=== PATIENT | male | born 1985 | race Caucasian/White ===

== ENCOUNTER → 2017-06-07 | Outpatient (CLI) | payer BC ==
[2017-06-07 18:47] LABS: BASO % 0.5 %; BASO ABS # 0.04 K/uL (0-0.2); EOS % 1.7 %; EOS ABS # 0.14 K/uL (0-0.5); HEMATOCRIT 45.5 % (42-52); IG# 0.02 K/uL (0.00-0.02); LYMPH % 34.8 %; LYMPH ABS # 2.86 K/uL (1.2-3.4); MEAN CELL VOLUME 82.3 fL (80-100); MEAN CORPUSCULAR HEMOGLOBIN 28.9 pg (25-34); MEAN CORPUSCULAR HGB CONC 35.2 g/dl (32-36); MEAN PLATELET VOLUME 11.2 fL (7.4-10.4); MONO % 7.2 %; MONO ABS # 0.59 K/uL (0.11-0.59); NEUT % 55.6 %; NEUT ABS # 4.58 K/uL (1.4-6.5); PLATELET COUNT 195 K/uL (130-400); RED CELL DISTRIBUTION WIDTH CV 13.8 % (11.5-14.5); RED CELL DISTRIBUTION WIDTH SD 41.5 fL (36.4-46.3); WHITE BLOOD COUNT 8.23 K/uL (4.8-10.8)
[2017-06-07 19:15] LABS: ALBUMIN 3.9 gm/dl (3.4-5.0); ALT/SGPT 54 U/L (12-78); AST/SGOT 22 U/L (15-37); BLOOD UREA NITROGEN 15 mg/dl (7-18); CARBON DIOXIDE 27 mmol/L (21-32); CREATININE 0.78 mg/dl (0.60-1.40); GLUCOSE 94 mg/dl (70-99); POTASSIUM 3.8 mmol/L (3.5-5.1); SODIUM 138 mmol/L (136-145)
[2017-06-07 19:18] LABS: ALKALINE PHOSPHATASE 62 U/L (45-117); TOTAL PROTEIN 7.9 gm/dl (6.4-8.2)
== END | disposition home or self-care (01) ==
LOC: C.LABMFLN 13:47
PROVIDERS: ATTEND Family Medicine
DX: R19.7 Diarrhea, unspecified (principal)

== ENCOUNTER → 2017-06-23 | Outpatient (CLI) | payer BC ==
[2017-06-23 13:12] LABS: BASO % 0.4 %; BASO ABS # 0.03 K/uL (0-0.2); EOS % 2.7 %; EOS ABS # 0.22 K/uL (0-0.5); HEMATOCRIT 45.4 % (42-52); HEMOGLOBIN 15.4 g/dL (14.0-18.0); IG# 0.01 K/uL (0.00-0.02); LYMPH % 35.4 %; LYMPH ABS # 2.87 K/uL (1.2-3.4); MEAN CELL VOLUME 84.1 fL (80-100); MEAN CORPUSCULAR HEMOGLOBIN 28.5 pg (25-34); MEAN CORPUSCULAR HGB CONC 33.9 g/dl (32-36); MEAN PLATELET VOLUME 11.4 fL (7.4-10.4); MONO % 7.6 %; MONO ABS # 0.62 K/uL (0.11-0.59); NEUT % 53.8 %; NEUT ABS # 4.36 K/uL (1.4-6.5); PLATELET COUNT 195 K/uL (130-400); RED CELL DISTRIBUTION WIDTH CV 13.8 % (11.5-14.5); RED CELL DISTRIBUTION WIDTH SD 42.2 fL (36.4-46.3); WHITE BLOOD COUNT 8.11 K/uL (4.8-10.8)
[2017-06-23 13:34] LABS: BLOOD UREA NITROGEN 15 mg/dl (7-18); CARBON DIOXIDE 30 mmol/L (21-32); CREATININE 0.85 mg/dl (0.60-1.40); GLUCOSE 106 mg/dl (70-99); POTASSIUM 3.9 mmol/L (3.5-5.1); SODIUM 137 mmol/L (136-145)
== END | disposition home or self-care (01) ==
LOC: C.LABMFLN 08:40
PROVIDERS: ATTEND Family Medicine
DX: R19.7 Diarrhea, unspecified (principal)

== ENCOUNTER → 2017-07-29 | Outpatient (CLI) | payer BC ==
[2017-07-29 13:59] LABS: ALBUMIN 3.9 gm/dl (3.4-5.0)
== END | disposition home or self-care (01) ==
LOC: C.LABMFLN 10:42
PROVIDERS: ATTEND Surgery
DX: Z01.812 Encounter for preprocedural laboratory examination (principal); K82.8 Other specified diseases of gallbladder

== ENCOUNTER → 2017-08-09 | Outpatient (CLI) | payer BC ==
[~2017-08-09] MED LIST: LOSA100T65 PO; ZOLP5TAB PO
[2017-08-09 14:05] LABS: BASO % 0.3 %; BASO ABS # 0.02 K/uL (0-0.2); EOS ABS # 0.13 K/uL (0-0.5); HEMATOCRIT 46.2 % (42-52); HEMOGLOBIN 15.8 g/dL (14.0-18.0); IG# 0.01 K/uL (0.00-0.02); LYMPH % 37.5 %; LYMPH ABS # 2.44 K/uL (1.2-3.4); MEAN CELL VOLUME 82.6 fL (80-100); MEAN CORPUSCULAR HEMOGLOBIN 28.3 pg (25-34); MEAN CORPUSCULAR HGB CONC 34.2 g/dl (32-36); MEAN PLATELET VOLUME 11.4 fL (7.4-10.4); MONO % 6.9 %; MONO ABS # 0.45 K/uL (0.11-0.59); NEUT % 53.1 %; NEUT ABS # 3.45 K/uL (1.4-6.5); PLATELET COUNT 192 K/uL (130-400); RED CELL DISTRIBUTION WIDTH CV 13.7 % (11.5-14.5); RED CELL DISTRIBUTION WIDTH SD 41.2 fL (36.4-46.3)
[2017-08-09 14:16] LABS: INR 0.9 (0.9-1.1); PTT PATIENT 26.4 SECONDS (21.0-31.0)
[2017-08-09 14:28] LABS: BLOOD UREA NITROGEN 14 mg/dl (7-18); CALCIUM 9.2 mg/dl (8.5-10.1); CARBON DIOXIDE 28 mmol/L (21-32); CREATININE 0.82 mg/dl (0.60-1.40); GLUCOSE 96 mg/dl (70-99); POTASSIUM 4.1 mmol/L (3.5-5.1); SODIUM 138 mmol/L (136-145)
== END | disposition home or self-care (01) ==
LOC: C.LABMFLN 10:49
PROVIDERS: ATTEND Family Medicine
DX: Z01.818 Encounter for other preprocedural examination (principal)

== ENCOUNTER → 2017-08-17 | Day surgery (SDC) | payer BC ==
[2017-08-04 11:18] VITALS: Ht 160 cm; Wt 131.8 kg
[~2017-08-17] VITALS: Ht 160 cm; Wt 131.8 kg
[~2017-08-17] MED LIST changes: +ATROPINE SULFATE 0.1 MG/ML 5ML SYR IV PRN; +BUPIVACAINE 0.5 % 5 MG/1 ML PF 10ML VIAL ONE; +CEFOXITIN IV 2,000 MG in DEXTROSE 5% 50ML 50 ML IV SCH; +CHECK SCOPOLAMINE PATCH PLACEMENT SCH; +DEXAMETHASONE SOD INJ 4 MG/ML VIAL ONE; +ESMOLOL HCL 10 MG/ML 10 ML VIAL ONE; +FENTANYL CITRATE INJ 50 MCG/1 ML 2 ML VIAL ONE; +GLYCOPYRROLATE INJ 0.2 MG/ML VIAL ONE; +KETOROLAC TROMETHAMINE 30 MG/ML VIAL IV. PRN; +LABETALOL HCL IV 5 MG/ML 20ML IV PRN; +LACTATED RINGER'S 1000ML 1,000 ML IV SCH; +LIDOCAINE HCL 2% 2 ML VIAL (20MG/ML) ONE; +MIDAZOLAM HCL 1 MG/ML 2ML VIAL ONE; +MoRPHine SULFATE 4 MG/ML 1 ML CARP\\VIAL IV PRN; +NEOSTIGMINE METHYLSULFATE 5 MG/5 ML SYR ONE; +ONDANSETRON INJ 2 MG/ML 2 ML VIAL IV PRN; +ONDANSETRON INJ 2 MG/ML 2 ML VIAL ONE; +OXYC-57 PO; +OXYCODONE/ACETAMINOPHEN 5-325 TAB PO PRN; +PROMETHAZINE HCL INJ 12.5 MG in SODIUM CHLORIDE 0.9% 50ML 50 ML IV PRN; +PROPOFOL IV EMULSION 10 MG/ML 20 ML VIAL ONE; +ROCURONIUM BROMIDE 10 MG/ML 5 ML VIAL ONE; +SCOPOLAMINE 1.5 MG TDSY TD ONE; +SUCCINYLCHOLINE CHLORIDE 20 MG/ML 10 ML VIAL IV ONE
[2017-08-17 06:52] VITALS: BP 153/101; PULSE 84; TEMP 37; O2SAT 95
[2017-08-17 07:05] VITALS: BP 153/101; PULSE 84; TEMP 37; O2SAT 95
--- NOTE | 2017-08-17 08:12 | History & Physical Bridge Note ---
H&P Re-Evaluation Bridge Note: I have examined the patient, reviewed the History & Physical and in the interval since the performance of the History & Physical I have noted the following changes of clinical significance: No changes noted
--- NOTE | 2017-08-17 10:08 | [facility] Post Operative Brief Note ---
Immediate Operative Summary Operative Date August 17, 2017. Pre-Operative Diagnosis Biliary Dyskinesia Post-Operative Diagnosis Biliary Dyskinesia Procedure(s) Performed Laparoscopic Cholecystectomy Surgeon Dr Stanton Advertising Clerk Surgeon(s) Kostas Gutierrez PA-C Estimated Blood Loss 6CC Findings Consistent with Post-Op Diagnosis window of safety obtained Specimens A: Gallbladder and Contents Drains None Anesthesia Type General Complication(s) none Disposition Accompanied Pt To Recover: no Disposition: Recovery Room / PACU
--- NOTE | 2017-08-17 10:14 | [facility] Operative Report ---
Operative Report Operative Date August 17, 2017. Pre-Operative Diagnosis Biliary Dyskinesia Post-Operative Diagnosis Biliary dyskinesia, chronic cholecystitis Procedure(s) Performed Laparoscopic cholecystectomy Surgeon Dr Stanton Weatherization Installer Surgeon(s) Kostas Gutierrez PA-C Estimated Blood Loss 6CC Findings Mild chronic cholecystitis. Window of safety obtained, cystic duct and artery doubly clipped and divided. Good hemostasis. Specimens A: Gallbladder and Contents Drains None Anesthesia GETA Complication(s) None Disposition Recovery Room / PACU Indications 32-year-old morbidly obese male with signs and symptoms of biliary dyskinesia, plan for laparoscopic cholecystectomy with possible cholangiogram. The risks of the procedure were discussed, all questions were answered, and the patient agreed to proceed with surgery as planned. Description of Procedure The patient was properly identified, consented, and taken to the operating room where he was placed in the supine position. General endotracheal anesthesia was induced. SCDs and a safety belt were placed. Preoperative antibiotics were administered. The patient's abdomen was prepped and draped in the standard sterile fashion. A surgical timeout was performed and all parties were in agreement that this was the correct patient and procedure to be performed and we continued as planned. A stab incision was made in the left upper quadrant and the Veress needle was inserted. Saline drop test confirmed entry into the peritoneum. The abdomen was insufflated with carbon dioxide which the patient tolerated without incident. An incision was made superior and to the left of the umbilicus overlying the rectus muscle. The abdomen was then entered using the Optiview technique and a 5 mm trocar. The laparoscope was inserted and no damage from initial trocar or Veress needle placement was noted, no gross abnormalities were noted within the 4 quadrants of the abdomen. An 11 mm port was placed in the subxiphoid position and two 5 mm ports were then placed in the right subcostal position. The patient was placed in reverse Trendelenburg position and rotated towards the left. The dome of the gallbladder was retracted towards the left upper quadrant and the infundibulum was retracted toward the right lower quadrant revealing Calot' s triangle. There was mild gallbladder inflammation consistent with chronic cholecystitis. Case was technically difficult secondary to the patient's body habitus. Peritoneal attachments were taken down with electrocautery and blunt dissection. The cystic duct and artery were circumferentially dissected. A window of safety was obtained showing the cystic duct entering the gallbladder with no aberrant structures noted. The cystic duct and artery were doubly clipped and divided. A posterior cystic artery was encountered and clipped and divided. The gallbladder was then lifted off the gallbladder fossa with electrocautery. The gallbladder was placed in an Endo Catch bag and removed through the subxiphoid port site. The right upper quadrant was irrigated and hemostasis was found to be good. 5 mm trochars were removed under direct visualization and the abdomen was allowed to collapse. The subxiphoid port site fascia was closed with 0 Vicryl suture using the Endo Close. The wound was irrigated, and the skin of all ports was closed with 4-0 Monocryl subcuticular sutures. Dermabond was placed over the wounds. The patient was extubated in the operating room and taken to the PACU where he recovered without apparent incident. All sponge, instrument and needle counts were correct at the conclusion of the procedure. The patient tolerated the procedure well. The physician's technician assistant was present and scrubbed for the entire to the case. He was critical in positioning the patient, prepping and draping, retraction and exposure, driving the laparoscope, removal of the gallbladder, closure of the incisions, and placement of the dressings. I attest to the content of the Intraoperative Record and any orders documented therein. Any exceptions are noted below.
--- NOTE | 2017-08-17 10:25 | Discharge Instructions ---
Discharge Instructions Date of Service August 17, 2017. Visit Reason for Visit: Biliary Dyskinesia Discharge Discharge Diagnosis / Problem: laparoscopic cholecystectomy Discharge Goals Goal(s): Decrease discomfort Activity Recommendations Activity Limitations: as noted below Lifting Limitations: no more than 10 pounds Shower/Bathe: no limitations Driving or Machine Use: resume 3 days after discharge Anesthesia . Post Anesthesia Instructions: If you have had General Anesthesia or IV Sedation: * Do not drive today. * Resume driving when surgeon permits. * Do not make important decisions or sign legal documents today. * Call surgeon for: 1. Temperature elevations greater than 101 degrees F. 2. Uncontrollable pain. 3. Excessive bleeding. 4. Persistent nausea and vomiting. 5. Medication intolerance (nausea, vomiting or rash). * For nausea and vomiting use only clear liquids such as: tea, soda, bouillon until nausea subsides, then gradually increase diet as tolerated. * If you have any concerns or questions, call your surgeon's office. If physician is unavailable and it is an emergency, call 911 or go to the nearest emergency room. . Instructions / Follow-Up Instructions / Follow-Up Dr. Stanton in approx 2 weeks, call [phone] if you do not already have an appt Diet Recommendations Recommended Home Diet: no limitations Procedures Procedures Performed: Laparoscopic Cholecystectomy Pending Studies Studies pending at discharge: yes List of pending studies: pathology Medical Emergencies . Who to Call and When: Medical Emergencies: If at any time you feel your situation is an emergency, please call 911 immediately. . Non-Emergent Contact Non-Emergency issues call your: Surgeon Call Non-Emergent contact if: you have a fever, temperature is above 101.5, your pain is not controlled, wound has increased redness, you have any medication questions . . "Provider Documentation" section prepared by Roc Gutierrez. .
[2017-08-17] MEDS: FENTANYL CITRATE INJ 50 MCG/1 ML 2 ML VIAL IV PRN ×4 (10:46→11:03)
[2017-08-17 11:29] VITALS: BP 149/64; PULSE 79; TEMP 36.8; O2SAT 92
--- NOTE | 2017-08-17 11:34 | Anesthesiology Progress Note ---
Anesthesia Post Op Note Date & Time August 17, 2017 at 11:34 Vital Signs Pain Intensity: 3 Vital Signs Past 12 Hours Date Time Temp Pulse Resp B/P (MAP) Pulse Ox O2 Delivery O2 Flow Rate FiO2 08/17/17 11:20 36.0 71 17 134/89 93 Nasal Cannula 2 08/17/17 11:10 79 16 124/90 92 Nasal Cannula 2 08/17/17 11:00 70 12 138/88 92 Nasal Cannula 2 08/17/17 10:50 77 17 118/89 88 Room Air 08/17/17 10:40 62 16 133/85 97 Oxymask 10 08/17/17 10:30 69 18 142/92 94 Oxymask 10 08/17/17 10:22 36.5 90 16 147/115 91 Oxymask 10 08/17/17 07:05 37 84 18 153/101 (118) 95 Room Air 08/17/17 06:52 37 84 18 153/101 (118) 95 Room Air Notes Mental Status: alert / awake / arousable, participated in evaluation Pt Amnestic to Procedure: Yes Nausea / Vomiting: adequately controlled Pain: adequately controlled Airway Patency, RR, SpO2: stable & adequate BP & HR: stable & adequate Hydration State: stable & adequate Anesthetic Complications: no major complications apparent
[2017-08-17 11:59] VITALS: BP 114/82; PULSE 85; TEMP 36.8; O2SAT 97
== END | disposition home or self-care (01) ==
LOC: C.ACU 06:17
PROVIDERS: ATTEND Surgery
DX: K81.1 Chronic cholecystitis (principal); E66.01 Morbid (severe) obesity due to excess calories; I10 Essential (primary) hypertension; Z79.899 Other long term (current) drug therapy; Z88.1 Allergy status to other antibiotic agents

== ENCOUNTER → 2017-11-18 | Outpatient (CLI) | payer BC ==
[~2017-11-18] MED LIST changes: -ATROPINE SULFATE 0.1 MG/ML 5ML SYR IV PRN; -BUPIVACAINE 0.5 % 5 MG/1 ML PF 10ML VIAL ONE; -CEFOXITIN IV 2,000 MG in DEXTROSE 5% 50ML 50 ML IV SCH; -CHECK SCOPOLAMINE PATCH PLACEMENT SCH; -DEXAMETHASONE SOD INJ 4 MG/ML VIAL ONE; -ESMOLOL HCL 10 MG/ML 10 ML VIAL ONE; -FENTANYL CITRATE INJ 50 MCG/1 ML 2 ML VIAL ONE; -GLYCOPYRROLATE INJ 0.2 MG/ML VIAL ONE; -KETOROLAC TROMETHAMINE 30 MG/ML VIAL IV. PRN; -LABETALOL HCL IV 5 MG/ML 20ML IV PRN; -LACTATED RINGER'S 1000ML 1,000 ML IV SCH; -LIDOCAINE HCL 2% 2 ML VIAL (20MG/ML) ONE; -MIDAZOLAM HCL 1 MG/ML 2ML VIAL ONE; -MoRPHine SULFATE 4 MG/ML 1 ML CARP\\VIAL IV PRN; -NEOSTIGMINE METHYLSULFATE 5 MG/5 ML SYR ONE; -ONDANSETRON INJ 2 MG/ML 2 ML VIAL IV PRN; -ONDANSETRON INJ 2 MG/ML 2 ML VIAL ONE; -OXYCODONE/ACETAMINOPHEN 5-325 TAB PO PRN; -PROMETHAZINE HCL INJ 12.5 MG in SODIUM CHLORIDE 0.9% 50ML 50 ML IV PRN; -PROPOFOL IV EMULSION 10 MG/ML 20 ML VIAL ONE; -ROCURONIUM BROMIDE 10 MG/ML 5 ML VIAL ONE; -SCOPOLAMINE 1.5 MG TDSY TD ONE; -SUCCINYLCHOLINE CHLORIDE 20 MG/ML 10 ML VIAL IV ONE
== END | disposition home or self-care (01) ==
LOC: C.LABMFLN 11:36
PROVIDERS: ATTEND Family Medicine
DX: Z00.00 Encounter for general adult medical examination without abnormal findings (principal)